=== PATIENT | female | born 1955 | race Caucasian/White ===

== ENCOUNTER 2018-11-11 01:56 | Inpatient (IN) ==
--- NOTE | 2018-11-11 02:42 | PROVIDER DOCUMENTATION ---
This chart was entered by Mindy Matthews Scribe, acting as scribe for Nunu Acuña MD. HPI-Musculoskeletal Pain/Inj - GENERAL Stated Complaint: RIGHT UPPER LEG PAIN Time Seen by Provider: 11/11/18 02:10 Source: patient - HX OF PRESENT ILLNESS-MUSKULOSKELTAL Nature of Presenting Problem: 62 y/o female presents to ED with R hip/groin pain onset 3 days ago. Pt reports she has not been able to walk or bear weight today. Pt denies injury. Pt states she has taken naproxen and meloxicam for her pain with no relief. Pt is alert and oriented. Quality of Pain: reports: aching Severity in ED: moderate Onset/Duration: 3 days ago Timing: still present, getting worse Modifying Factors: worse with: movement, palpation, other (weight bearing) Any recent injury?: No Locality of Occurance: Home Similar Symptoms Previously?: No Recently seen or treated by another doctor?: No - HIP/PELVIS PAIN/INJURY Hip Pain Location: reports: hip (R) Pain Radiation: reports: groin (R) Context / Method of Injury: reports: unknown Associated Symptoms: reports: denies symptoms Review of Systems - Adult - REVIEW OF SYSTEMS - ADULT Constitutional: denies: chills, fever Eyes: reports: no symptoms reported Ears, Nose, Mouth & Throat: reports: no symptoms reported Cardiovascular: denies: chest pain, palpitations Respiratory: denies: cough, shortness of breath Gastrointestinal: denies: abdominal pain, diarrhea, nausea, vomiting Genitourinary: reports: no symptoms reported Musculoskeletal: reports: joint pain (R hip/groin). denies: back pain Integumentary: reports: no symptoms reported Neurological: denies: dizziness/vertigo, seizure Psychiatric: reports: no symptoms reported Endocrine: reports: no symptoms reported Hematologic/Lymphatic: reports: no symptoms reported Allergic/Immunologic: reports: no symptoms reported All Other Systems: Reviewed and Negative Past History - Adult - PAST MEDICAL HISTORY-ADULT Review of Records: reports: Old Records Reviewed, Nursing Assessment Review, Medications Reviewed Major Childhood Illnesses: reports: denies history - PRIOR SURGERIES/PROCEDURES Surgical/Procedure History: reports: none - IMMUNIZATION STATUS Childhood Immunizations: See Nurse Assessment Flu Vaccine: See Nurse Assessment - FAMILY HISTORY Family History: reviewed, not pertinent - SOCIAL HISTORY Smoking: non-smoker Substance Use: none/never Alcohol Use Frequency: occasionally Living Situation: family Physical Exam-Injury Related - Physical Exam-Injury Related Initial Vital Signs Reviewed: Yes General Appearance: appears well, alert, no apparent distress Eyes: PERRL/EOMI, pink conjunctivae Head, Ears, Nose, Mouth & Throat: normocephalic/atraumatic, moist mucous membranes, normal ENT inspection Neck: non-tender, full range of motion Respiratory: chest non-tender, lungs clear, normal breath sounds Cardiovascular: normal peripheral pulses, regular rate, rhythm Abdominal Exam: normal bowel sounds, soft, tenderness (R groin) Back Exam: normal inspection, no CVA tenderness Extremity: normal range of motion, non-tender, normal gait Integumentary: normal color, warm/dry Neurologic: grossly normal Psych/Mental Status: normal mood/affect, normal thought content, normal thought process Progress - PLAN OF CARE/RESULTS Progress/Plan/Lab Results: Vital Signs - 8 hr 11/11/18 02:12 Temperature 97.6 F Pulse Rate 49 L Respiratory Rate 11 L Blood Pressure 108/73 O2 Sat by Pulse Oximetry 99 Laboratory Results - last 24 hr 11/11/18 03:19 WBC 11.56 H RBC 4.56 Hgb 15.1 Hct 44.7 MCV 98.0 MCH 33.1 H MCHC 33.8 RDW Std Deviation 13.9 Plt Count 150 MPV 12.0 H Immature Gran % (Auto) 0.3 Neut % (Auto) 70.8 Lymph % (Auto) 17.3 L [place] % (Auto) 10.3 H Eos % (Auto) 0.9 Baso % (Auto) 0.4 Immature Gran # (Auto) 0.04 Neut # (Auto) 8.18 H Lymph # (Auto) 2.00 [place] # (Auto) 1.19 H Eos # (Auto) 0.10 Baso # (Auto) 0.05 Orders Category Date Time Status CT PELVIS W/O CONTRAST [CT] Stat Exams 11/11/18 02:04 Taken CBC WITH ELECTRONIC DIFF [HEME] Stat Lab 11/11/18 03:19 Completed CMP [COMPREHENSIVE METABOLIC PANEL] [CHEM] Stat Lab 11/11/18 03:19 Received URINALYSIS W/POSS RFLX CULT [URINALYSIS] Stat Lab 11/11/18 02:07 Uncollected URINE DRUG SCREEN Stat Lab 11/11/18 02:07 Uncollected Result Diagrams: 11/11/18 03:19 - CT/MRI 1 CT Study: Pelvis Impression: Abnormal (3 lytic lesions seen), See EMR Report - CONSULTS/PCP/HOSPITALIST Notification #1 *Consult/PCP/Hospitalist*: DR FALK Time Discussed: 03:38 Consult Disposition: Will see in ED, Admit Departure - Departure Date of Disposition Decision: 11/11/18 Time of Disposition Decision: 03:39 DIAGNOSIS: Pelvic pain in female, Hip pain, Lytic bone lesions on xray Disposition: ADMITTED INPATIENT 09 Certified Medical Emergency: Emergent Condition: Good - Critical Care Note This patient required my direct & personal management of CC.: No Attestation - Physician/ URIEL Attestation Patient care was provided by Advanced Practice Provider:: No The physician spent face to face time with patient:: Yes Advanced Practice Provider documentation review:: Supervising physician onsite and consulted in the evaluation and care of this patient. The physician did have a face to face encounter with the patient. This chart was documented by the indicated scribe, (Mindy Matthews Scribe) and accurately reflects the services I performed and decisions made by me, Nunu Acuña MD, as attested by the provider's signature.
[2018-11-11 03:28] LABS: BASO# 0.05 X1000 (0.0-0.2); BASO% 0.4 % (0.0-0.8); EOS% 0.9 % (0.0-10.0); HEMATOCRIT 44.7 % (37.0-47.0); HEMOGLOBIN 15.1 g/dL (12.0-16.0); IMM GRAN# 0.04 X1000 (0.0-0.04); IMM GRAN% 0.3 % (0.0-0.5); LYMPH% 17.3 % (20.5-51.1); MCH 33.1 PG (27-31); MCHC 33.8 g/dL (33-37); MONO# 1.19 X1000 (0.11-0.59); MONO% 10.3 % (1.7-9.3); NEUT# 8.18 X1000 (1.4-6.5); NEUT% 70.8 % (42.2-75.2); PLT 150 X1000 (130-400); RBC 4.56 XMIL (4.2-5.4); RDW 13.9 % (11.5-14.5); WBC 11.56 X1000 (4.8-10.8)
[2018-11-11 03:50] LABS: AGAP 11; ALB/GLOB RATIO 0.6; ALBUMIN 2.9 g/dL (3.5-5.0); ALKALINE PHOSPHATASE 118 U/L (32-104); BUN 20 mg/dL (8-22); CALCIUM 8.8 mg/dL (8.8-10.2); CHLORIDE 103 mmol/L (98-107); COSMO 283; CREATININE 0.9 mg/dL (0.5-0.9); ESTIMATED GFR > 60; GLUCOSE 152 mg/dL (70-104); GOT 82 U/L (10-30); GPT 72 U/L (10-36); POTASSIUM 3.6 mmol/L (3.5-5.1); SODIUM 139 mmol/L (136-145); TCO2 25 mmol/L (25-35); TOTAL BILIRUBIN 0.88 mg/dL (0.20-1.00); TOTAL PROTEIN 7.6 g/dL (6.3-8.3)
[2018-11-11 04:04] LABS: URINE SOURCE CLEAN CATCH
[2018-11-11 04:24] LABS: BILIRUBIN URINE NEGATIVE (NEGATIVE); BLOOD URINE NEGATIVE (NEGATIVE); COLOR YELLOW; GLUCOSE URINE NEGATIVE (NEGATIVE); KETONE URINE TRACE mg/dL (NEGATIVE); LEUKOCYTES URINE TRACE (NEGATIVE); NITRITE URINE NEGATIVE (NEGATIVE); PROTEIN URINE 30 mg/dL (NEGATIVE); SP GRAVITY URINE 1.026; TURBIDITY URINE HAZY (CLEAR); UROBILINOGEN URINE 4 mg/dL (NORMAL)
[2018-11-11 04:26] LABS: UR EPITHELIAL CELLS >10 /HPF (<10); URINE BACTERIA 1+ /HPF; URINE RBC <10 /HPF (<10); URINE WBC <10 /HPF (<10)
[2018-11-11 04:29] LABS: UR AMPHETAMINES QUAL NONE DETECTED (NONE DETECT); UR BARBITUATES QUAL NONE DETECTED (NONE DETECT); UR BENZODIAZEPIN QUAL NONE DETECTED (NONE DETECT); UR CANNABINOIDS QUAL NONE DETECTED (NONE DETECT); UR COCAINE QUAL NONE DETECTED (NONE DETECT); UR METHADONE QUAL NONE DETECTED (NONE DETECT); UR OPIATES QUAL PRESUMPTIVE POSITIVE (NONE DETECT); UR OXYCODONE QUAL NONE DETECTED (NONE DETECT); UR PCP QUAL NONE DETECTED (NONE DETECT)
[2018-11-11] MEDS ORDERED: ZOFRAN IV PRN (05:03)
[2018-11-11] MEDS ORDERED: MOBIC PO PRN (05:03)
[2018-11-11] MEDS: NORCO-5 PO PRN ×3 (05:44→17:49)
[2018-11-11] MEDS: NS 1,000 ML IV SCH (05:45)
--- NOTE | 2018-11-11 05:51 | HISTORY AND PHYSICAL ---
PRIMARY CARE PHYSICIAN: Unknown. CHIEF COMPLAINT: Right hip pain. HISTORY OF PRESENTING ILLNESS: This is a 62-year-old female with a history of hypothyroidism and GERD, who presented to the emergency department with a four-day history of worsening right hip pain. The patient states that it worsened over the weekend and she could barely put weight on it. She was evaluated in the emergency department. She had imaging done which did show metastatic disease. Due to these findings, it was thought that she would require admission for further evaluation and management. At the time of my examination, the patient denied any headache, fever, chills, chest pain, or shortness of breath but complained of worsening right hip pain. PAST MEDICAL HISTORY: Hypothyroidism and GERD. PAST SURGICAL HISTORY: None. ALLERGIES: Penicillin. CURRENT MEDICATIONS: 1. Nexium 40 mg p.o. daily. 2. Lortab 7.5/500 one p.o. q.6 hours. 3. Levothyroxine 125 mcg p.o. daily. 4. Meloxicam 7.5 mg p.o. daily. SOCIAL HISTORY: Smoking for the past 5 years. Admits to social alcohol use. Denies any illicit drug use. FAMILY HISTORY: No history of coronary disease. REVIEW OF SYSTEMS: Fourteen point review of systems is as in HPI, other systems negative. PHYSICAL EXAMINATION: GENERAL: Cooperative and friendly female who is resting more comfortably now. VITAL SIGNS: Temperature 97.6 degrees, pulse 49, respirations 18, blood pressure 108/73. HEENT: Atraumatic, normocephalic. Extraocular movements are intact. PERRLA. NECK: Supple. CHEST: Clear to auscultation. CARDIOVASCULAR: Regular rate and rhythm. S1 and S2. ABDOMEN: Soft. Positive bowel sounds. EXTREMITIES: Right hip region tenderness. NEUROLOGIC: She is awake, alert, and oriented x3. : No bladder distention. SKIN: Warm. LABORATORY STUDIES: WBCs 11.56, hemoglobin 15.1, hematocrit 44.7, platelets 150,000, sodium 139, potassium 3.6, chloride 103, CO2 25, BUN 20, creatinine 0.9, glucose 152. IMAGING STUDIES: Pelvic CT shows lytic lesions and metastatic disease as per ER physician. ASSESSMENT: This is a 62-year-old female with a history of hypothyroidism and gastroesophageal reflux disease, who presented to the emergency department with a four-day history of worsening right hip pain. She was evaluated in the emergency department. She had imaging done which did show suspicion for metastatic disease. Subsequently she will require admission for further management. 1. Right hip region pain. 2. Suspected metastatic lesions. 3. Hypothyroidism. 4. Gastroesophageal reflux disease. PLAN: 1. We will admit patient to medical floor with telemetry. 2. Continue with supportive treatment with adequate pain control. 3. We will schedule for further imaging to evaluate abnormal pelvic CT. 4. Restart home medications. 5. Put patient on DVT prophylaxis with SCDs. 6. We will continue to follow, reassess, and make further recommendation based on patient's clinical course. cc: Mau Peraza MD
--- NOTE | 2018-11-11 06:45 | Diag Imaging Result Doc PS360 ---
CT PELVIS W/O CONTRAST - 11/11/2018 INDICATION: groin pain COMPARISON: None FINDINGS: There are several round bony lytic lesions. These are in the medial right acetabulum, left iliac wing, and superior posterior right iliac wing. No acute fractures at this time. Please note that the right medial acetabular lytic lesion nearly eroded completely through the superior pubic ramus and is at risk for pathologic fracture. IMPRESSION: Bony metastases to the pelvis. This exam was performed using automated exposure control, adjustment of mA or kV according to patient size, and/or use of iterative reconstruction technique Electronically signed by Mohan Sands 11/11/2018 6:43 AM
[2018-11-11] MEDS: TORADOL IV SCH ×2 (09:36→21:03)
[2018-11-11] MEDS: SYNTHROID PO SCH (09:36)
[2018-11-11] MEDS: PRILOSEC PO SCH (09:36)
--- NOTE | 2018-11-11 16:37 | Diag Imaging Result Doc PS360 ---
US ABDOMEN-COMPLETE - 11/11/2018 INDICATION: elevated LFT, suspected malignancy COMPARISON: CT with contrast 11/11/2018 FINDINGS: The exam was challenging due to patient's status. The small liver masses are not visible as a result. Spleen length is 13.3 cm. Pancreas is obscured. The gallbladder is collapsed and otherwise grossly normal. Common bile duct measures 4 mm. Aorta and IVC are obscured. Main portal vein is patent. IMPRESSION: Suboptimal. Electronically signed by Mohan Sands 11/11/2018 4:34 PM
--- NOTE | 2018-11-11 16:38 | Diag Imaging Result Doc PS360 ---
US PELVIC NON-OB COMPLETE - 11/11/2018 INDICATION: suspected malignancy. pelvic metastasis found TECHNIQUE: Endovaginal COMPARISON: CT from earlier today FINDINGS: The exam is extremely challenging due to the patient's condition. The uterus is grossly normal. The uterus measures 6 x 3.2 x 4.4 cm. Endometrial stripe thickness is 4.2 mm. The ovaries are obscured. No obvious mass or fluid collection. IMPRESSION: Negative exam. Electronically signed by Mohan Sands 11/11/2018 4:35 PM
--- NOTE | 2018-11-11 18:16 | Diag Imaging Result Doc PS360 ---
CT THORAX/ABDOMEN W/CONTRAST - 11/11/2018 INDICATION: newly found pelvic bony metastasis COMPARISON: None FINDINGS: CHEST: There is no adenopathy. No evidence of pulmonary embolism. Heart and great vessels are normal. There is some minimal dependent atelectasis. There is a small 4 mm indeterminate pulmonary nodule in the right middle lobe anteriorly. There is mild COPD. There are some ill-defined hypodense nodules throughout the thoracic spine and in the sternum. No fractures. Abdomen: There are several ill-defined liver masses mainly in the lateral right lobe. The largest is in the dome, measuring 4.9 x 2.3 cm. Background liver demonstrates a nodular contour compatible with cirrhosis. No biliary dilation. No vascular thrombosis visible. Spleen size is normal. The spleen measures about 13 x 3.9 cm. The gallbladder, pancreas, and adrenals are normal. There are small cysts in the kidneys. No bowel obstruction or inflammation. There are faint low density masses in the upper lumbar spine. IMPRESSION: 1. Hepatic cirrhosis. Multifocal masses in the liver. The bony metastases may represent metastatic hepatocellular cancer. Correlate clinically. 2. Mild COPD. 3. Tiny indeterminate nodule in the right middle lobe but otherwise no significant abnormality in the lungs. 4. Multifocal subtle bony masses in the spine and sternum compatible with metastases. This exam was performed using automated exposure control, adjustment of mA or kV according to patient size, and/or use of iterative reconstruction technique Electronically signed by Mohan Sands 11/11/2018 6:13 PM
[2018-11-12] MEDS: NS 1,000 ML IV SCH ×3 (03:02→08:23)
[2018-11-12] MEDS: TORADOL IV SCH ×6 (03:03→21:55)
[2018-11-12] MEDS: PRILOSEC PO SCH (06:36)
[2018-11-12] MEDS: SYNTHROID PO SCH (06:36)
[2018-11-12 07:13] LABS: HEMATOCRIT 43.8 % (37.0-47.0); HEMOGLOBIN 14.6 g/dL (12.0-16.0); MCH 33.8 PG (27-31); MCHC 33.3 g/dL (33-37); MCV 101.4 FL (81-99); MPV 12.3 FL (7.4-10.4); RBC 4.32 XMIL (4.2-5.4); RDW 14.1 % (11.5-14.5); WBC 7.02 X1000 (4.8-10.8)
[2018-11-12 07:29] LABS: AGAP 6; ALB/GLOB RATIO 0.7; ALBUMIN 2.7 g/dL (3.5-5.0); ALKALINE PHOSPHATASE 124 U/L (32-104); BUN 17 mg/dL (8-22); CALCIUM 7.9 mg/dL (8.8-10.2); CHLORIDE 108 mmol/L (98-107); COSMO 278; CREATININE 0.6 mg/dL (0.5-0.9); ESTIMATED GFR > 60; GLUCOSE 82 mg/dL (70-104); GOT 72 U/L (10-30); GPT 66 U/L (10-36); POTASSIUM 3.9 mmol/L (3.5-5.1); SODIUM 139 mmol/L (136-145); TCO2 25 mmol/L (25-35); TOTAL BILIRUBIN 0.68 mg/dL (0.20-1.00); TOTAL PROTEIN 6.7 g/dL (6.3-8.3)
[2018-11-12] MEDS: NORCO-5 PO PRN ×3 (08:24→21:56)
[2018-11-12 13:14] LABS: INR 1.12; PROTIME 15.3 Seconds (11.0-16.0)
[2018-11-12 13:15] LABS: PTT 33.4 Seconds (22.3-41.8)
--- NOTE | 2018-11-12 14:23 | PROGRESS NOTE ---
DATE: 11/12/2018 SUBJECTIVE: Patient reports pain is under control. Denies any other complaint at this time. OBJECTIVE: Vital Signs: Temperature 98.3 degrees, heart rate 47, respiratory rate 16, blood pressure 144/74. O2 saturation 97% on room air. General: This is a chronically ill-looking, 62-year-old female lying in bed in no acute distress. Cardiovascular: S1, S2 heard. No murmurs, gallops, or rubs. Regular rate and rhythm. Respiratory: Clear bilaterally to auscultation. No work of breathing or using accessory muscles. Abdomen: Soft, nontender to palpation. Bowel sounds present. No organomegaly. Extremities: Right hip region tenderness. Patient moves all four extremities. Peripheral pulses present in both legs. Neurological: Patient is alert and oriented x3. Moves all 4 extremities. LABORATORY DATA: Reviewed. ASSESSMENT AND PLAN: 1. Suspected hepatocellular carcinoma. The patient was basically admitted to the hospital for right hip pain. CT scan of the pelvis shows possible metastatic lesions. The initial workup I ordered showed the CT of the abdomen and thorax hepatic cirrhosis with bony metastases in the spine on sternum suggesting metastatic hepatocellular cancer. Sister who is in the bedside today provide much information that the patient did not. She said that she was diagnosed more than 10 years ago with hepatitis C, and she was seen a few years back the by GI in the [facility] where they were trying to provide medications for this chronic hepatitis C. Apparently, she was lost to follow up. She was recently seen a few months back in [facility] for abdominal pain. We found this advanced cirrhosis but as per sister there was no metastasis noted at this time. I have put a consult for Hematology/Oncology. I have seen an order for a CT-guided liver biopsy to be done later today. Also, I have ordered alpha- fetoprotein. We are going to check hepatitis C viral load and fibrosure. We will see what those exams shows. In the meantime, we will follow recommendations from Dr. Gutiérrez from Oncology. At this point, pain is under control. We will continue with the same management. 2. Hypothyroidism stable. We will continue home medications. 3. Gastroesophageal reflux disease. We will continue with omeprazole. DISPOSITION: We are following the lead from hematology/oncology. cc: MD GERALDINE Barillas
--- NOTE | 2018-11-12 15:27 | Diag Imaging Result Doc PS360 ---
EXAM: CT GUIDED BX LIVER 11/12/2018 HISTORY: met disease; liver lesions TECHNIQUE: CT-guided biopsy of the liver COMMENT: The risks and benefits of the procedure were discussed with the patient and she agreed to the procedure. Following sterile preparation the skin and administration 1% lidocaine to the skin and deeper soft tissues superficial to a enhancing mass previously demonstrated in the inferior right hepatic lobe, and following administration of intravenous contrast to better visualize the lesion, the area of the lesion was biopsied 4 times with a coaxial 18-gauge Temno core biopsy needle. There are no immediate complications. IMPRESSION: CT-guided biopsy of the liver as described. Electronically signed by Cam Noel 11/12/2018 3:25 PM
[2018-11-13] MEDS: TORADOL IV SCH ×4 (03:07→22:08)
[2018-11-13] MEDS: PRILOSEC PO SCH ×2 (05:50→06:10)
[2018-11-13] MEDS: SYNTHROID PO SCH ×2 (05:50→06:10)
[2018-11-13 06:31] LABS: HEMATOCRIT 42.7 % (37.0-47.0); HEMOGLOBIN 14.2 g/dL (12.0-16.0); MCH 33.6 PG (27-31); MCHC 33.3 g/dL (33-37); MCV 100.9 FL (81-99); MPV 12.1 FL (7.4-10.4); RBC 4.23 XMIL (4.2-5.4); WBC 7.02 X1000 (4.8-10.8)
[2018-11-13 06:46] LABS: AGAP 8; ALB/GLOB RATIO 0.6; ALBUMIN 2.7 g/dL (3.5-5.0); ALKALINE PHOSPHATASE 127 U/L (32-104); BUN 17 mg/dL (8-22); CALCIUM 8.6 mg/dL (8.8-10.2); CHLORIDE 108 mmol/L (98-107); COSMO 280; CREATININE 0.6 mg/dL (0.5-0.9); ESTIMATED GFR > 60; GLUCOSE 82 mg/dL (70-104); GOT 70 U/L (10-30); GPT 61 U/L (10-36); SODIUM 140 mmol/L (136-145); TCO2 24 mmol/L (25-35); TOTAL BILIRUBIN 0.78 mg/dL (0.20-1.00); TOTAL PROTEIN 7.1 g/dL (6.3-8.3)
[2018-11-13] MEDS: NORCO-5 PO PRN ×4 (06:54→20:23)
[2018-11-13 15:17] LABS: HEPATITIS PROFILE ACUTE SEE COMMENTS
--- NOTE | 2018-11-13 19:51 | HEMO/ONC CONSULTATION ---
DATE: 11/12/2018 CONSULTATION REQUESTED BY: The Hospitalist Service. REASON FOR CONSULTATION: Consultation is for metastatic hip lesion. HISTORY OF PRESENT ILLNESS: Ms. Bourgeois is a 62-year-old female who presented to the ER initially complaining of worsening right hip pain to the point where she cannot ambulate. The patient has a history of cirrhosis. Imaging was done and they found that she had a metastatic right hip lesion and she has now been admitted for further evaluation and treatment. PAST MEDICAL HISTORY: Positive for hypothyroidism and GERD, as well as Hep C cirrhosis. PAST SURGICAL HISTORY: None. SOCIAL HISTORY: Patient admits to social alcohol use, but denies any illicit drug use. She is a current smoker. FAMILY HISTORY: Negative for any coronary artery disease. Also negative for any cancer. REVIEW OF SYSTEMS: Twelve point review of systems completed is negative, except for expressed in HPI. PHYSICAL EXAMINATION: Vital Signs: Temperature 98.3, heart rate 47, respirations 16, blood pressure 144/74. O2 saturation 97% on room air. General: This is a female sitting on her hospital bed. Her sister is at bedside. HEENT: Head normocephalic, atraumatic. Eyes: Pupils equal, round, reactive. Ears, nose, throat, neck and mouth: Oral mucosa appears to be normal. Gross auditory acuity is intact. Cardiovascular: S1 and S2 heard with no murmurs, gallops or rubs appreciated. Respiratory: Chest is essentially clear. Normal respiratory effort. Gastrointestinal: Abdomen is soft. No tenderness noted at this time. Normoactive bowel sounds. Musculoskeletal: No bony abnormalities. Neurologic: Patient is alert and awake. LABORATORY AND STUDIES: White blood cells 7.02, hemoglobin 14.6, platelet count 130,000. Sodium 139, potassium 3.9 chloride 108, CO2 25 BUN 17, creatinine 0.6, glucose 82. CT of chest and abdomen shows hepatic cirrhosis with multifocal masses in the liver. Bony metastasis may represent metastatic hepatocellular cancer. Correlate clinically. Mild COPD. Tiny indeterminate nodule in the right middle lobe that measures 4 mm with no other significant abnormality in the lungs. Multifocal subtle bony masses in the spine and sternum compatible with metastasis. ASSESSMENT AND PLAN: 1. Bony disease with some liver masses. Unclear of the primary source for cancer at this time. We recommend that we proceed with a liver biopsy and hopefully they will be able to identify the primary. AFP has already been ordered and we will follow up on those results. Await final path before discussing any treatment so that way we can ensure we know what the primary is. 2. Hip pain. Continue management per the primary team. Hip pain seems to be well managed currently with [place]. 3. Hypothyroidism. She will continue on Synthroid at this time. 4. Acid reflux symptoms. The patient can continue to take Prilosec. We want to thank you for consulting us on Ms. Bourgeois and we will continue to follow along and adjust our treatment plan per hospital course. Dictated by ELIZABETH Loera for Eliza Gutiérrez MD cc: Eliza Gutiérrez MD I have seen and examined the patient. The above note reflects my history, physical, assessment and plan. Eliza CHANDLER
--- NOTE | 2018-11-13 21:19 | PROGRESS NOTE ---
DATE: 11/13/2018 INTERVAL HISTORY: She underwent CT-guided liver biopsy yesterday which she tolerated well. She did have elevated alpha-fetoprotein level which came about. SUBJECTIVE: Ms. Bourgeois denies any new complaints. She is feeling fine. We discussed about repeating blood test tomorrow. We also discussed about getting physical therapy and help her come out of bed. I answered all of her questions. SUBJECTIVE: She is denying any chest pain or shortness of breath. VITALS: Currently, vitals evaluation suggests she has been afebrile with a pulse of 51, respiratory rate 14, temperature 98.5, blood pressure 132/75. Saturating 97% on room air. PHYSICAL EXAMINATION: General: Does not appear in any acute distress. HEENT: Oral cavity is moist. Lungs: Air entry bilaterally equal. No wheeze, rhonchi, crackles. Cardiovascular: S1, S2 normal. No murmur, rub or gallop. Abdomen: Soft. She has mild tenderness on the right upper quadrant. She also has the liver biopsy site is dressed, not bleeding. Hypoactive bowel sounds. She does not have any lower extremity edema. LABS: Suggestive of stable hemoglobin, mild thrombocytopenia, normal kidney function, persistently elevated transaminitis, elevated alpha-fetoprotein level. Hepatitis panel suggests positive hepatitis C antibody suggestive of chronic hepatitis. Her quantitative and FibroSURE scores are pending. ASSESSMENT AND PLAN: 1. Suspected hepatocellular carcinoma with bony metastasis involving pelvis and sternum. Follow up final liver biopsy results. She has a hepatitis C antibody positive. The FibroSURE sure and quantitative Vital RNA are in lab. Hematology/Oncology has been consulted. CT scan liver biopsy result is pending. 2. Others, continue home levothyroxine for hypothyroidism, omeprazole for chronic GERD, and [place] as needed for pain. 3. Disposition: If patient continues to do better, my plan is to discharge her home with family. I will consider discussion with Hematology/Oncology before I make that order. Plan of care discussed with the patient. Tomorrow I am going to discuss plan of care with the patient's family as well. cc: Papa Aguirre MD MTDD
[2018-11-14] MEDS: NORCO-5 PO PRN ×5 (05:12→22:29)
[2018-11-14] MEDS: TORADOL IV SCH ×2 (05:13→05:36)
[2018-11-14] MEDS: PRILOSEC PO SCH ×3 (05:36→09:31)
[2018-11-14] MEDS: SYNTHROID PO SCH ×2 (05:36→09:31)
[2018-11-14 06:32] LABS: HEMATOCRIT 44.3 % (37.0-47.0); HEMOGLOBIN 14.8 g/dL (12.0-16.0); MCH 33.4 PG (27-31); MCHC 33.4 g/dL (33-37); MPV 12.2 FL (7.4-10.4); RBC 4.43 XMIL (4.2-5.4); RDW 13.8 % (11.5-14.5); WBC 6.47 X1000 (4.8-10.8)
[2018-11-14 06:55] LABS: AGAP 9; ALB/GLOB RATIO 0.6; ALBUMIN 2.7 g/dL (3.5-5.0); ALKALINE PHOSPHATASE 118 U/L (32-104); BUN 16 mg/dL (8-22); CALCIUM 8.3 mg/dL (8.8-10.2); CHLORIDE 104 mmol/L (98-107); COSMO 278; CREATININE 0.6 mg/dL (0.5-0.9); ESTIMATED GFR > 60; GLUCOSE 127 mg/dL (70-104); GOT 73 U/L (10-30); GPT 59 U/L (10-36); POTASSIUM 3.7 mmol/L (3.5-5.1); SODIUM 138 mmol/L (136-145); TCO2 25 mmol/L (25-35); TOTAL BILIRUBIN 0.88 mg/dL (0.20-1.00); TOTAL PROTEIN 7.1 g/dL (6.3-8.3)
--- NOTE | 2018-11-14 10:41 | EKG Report ---
Test Performed on : 11/14/2018 10:31:40 AM Test Reason : Evaluate for bradycardia Blood Pressure : / mmHG Vent. Rate : 069 BPM Atrial Rate : 069 BPM P-R Int : 128 ms QRS Dur : 078 ms QT Int : 424 ms P-R-T Axes : 038 071 015 degrees QTc Int : 454 ms Normal sinus rhythm. Inferior infarct , age undetermined Abnormal ECG When compared with ECG of 16-MAR-2012 13:18, ST no longer elevated in Anterior leads T wave inversion now evident in Inferior leads T wave amplitude has decreased in Anterolateral leads Confirmed by Gianluca VELAZQUEZ, Renny Bey ([id number]) on 11/17/2018 11:29:37 AM
[2018-11-14] MEDS ORDERED: FLEET ENEMA PR ONE (11:53)
[2018-11-14] MEDS: MIRALAX PO SCH (13:12)
--- NOTE | 2018-11-14 14:54 | PROGRESS NOTE ---
DATE: 11/14/2018 INTERVAL HISTORY: No acute event overnight. The patient has not had a bowel movement, and she would like to get a bowel regimen. The patient's sister is at bedside who is a surrogate decision, who is a family member involved in her care. We discussed about taking the Dixon catheter out. We also discussed about bone mets and liver lesions. SUBJECTIVE: Patient denies any complaints. She states she wants to go home. Currently, vitals suggest temperature 97.9 degrees, pulse 49, respiratory rate 14, blood pressure 126/83 and saturating 97% on room air. PHYSICAL EXAMINATION: General: The patient does not appear in any acute distress oral cavity is moist. Lungs: Air entry bilaterally equal. No wheeze, rhonchi, or crackles. Cardiovascular: S1, S2 normal. No murmur, rub, or gallop. Abdomen: Soft, nontender. No lower extremity edema. Her Dixon catheter has ordered to be removed. LABORATORY: Labs are suggestive of stable hemoglobin, hematocrit, her platelet count is stable at 120,000. She has normal electrolytes. Hyperchloremia has resolved. Normal kidney function. Mild transaminitis. Liver biopsy reports are still pending. Hepatitis C quantitative and hepatitis C FibroSURE are pending. ASSESSMENT AND PLAN: 1. Suspected metastatic neoplasia of unknown primary at the moment involving liver, pelvis, and sternum. Follow up final liver biopsy results. She does have history of chronic hepatitis C. Her FibroSURE and quantitative viral RNA are in lab. Hematology/Oncology has been on board, and they would plan outpatient management based on her final biopsy results. It is possible she may need a repeat liver biopsy outpatient considering patient had moved during the biopsy procedure, and adequate liver sample may not have been obtained. 2. Others: Continue levothyroxine for hypothyroidism, omeprazole for chronic GERD, [place] as needed for pain. I will start her on MiraLAX for constipation. Her EKG does have sinus bradycardia. I would advise her to get an outpatient echocardiogram after discussing with candle molder machine as appropriate. 3. Disposition: I discussed her care with the patient's sister. The patient would like to go home. The patient's sister is working on setting up help to get her home family support. Depending on that, I am anticipating discharging in the next 24 hours with home physical therapy. Plan of care discussed with the patient and her sister at bedside. All of the questions have been answered. cc: Papa Aguirre MD
[2018-11-15] MEDS: NORCO-5 PO PRN ×5 (04:50→23:15)
[2018-11-15] MEDS: PRILOSEC PO SCH ×2 (04:52→06:48)
[2018-11-15] MEDS: SYNTHROID PO SCH ×2 (04:53→06:48)
[2018-11-15] MEDS: MIRALAX PO SCH ×3 (09:37→20:47)
[2018-11-15] MEDS: LACTULOSE PO SCH ×2 (12:18→23:01)
--- NOTE | 2018-11-15 16:12 | PROGRESS NOTE ---
DATE: 11/15/2018 INTERVAL HISTORY: No acute event overnight. Hepatitis C viral load came back elevated to more than 55,000. The patient has not had a bowel movement. SUBJECTIVE: Denies any complaints. We discussed about giving stool softener. She had refused her [place] enema yesterday. We discussed about potentially discharging her once her family is around, and she has a bowel movement. VITALS: Temperature 98.2 degrees, pulse 48, respiratory rate 20, blood pressure 120/78 and saturating 96% on room air. PHYSICAL EXAMINATION: Morbidly obese not in acute distress. Oral cavity is moist. Air entry bilaterally equal. No wheeze or crackles. S1, S2 normal. No murmur or gallop. Abdomen is soft and nontender. No lower extremity edema. LABORATORY: No new labs today except as mentioned above. ASSESSMENT AND PLAN: 1. 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 2. Others: Hypothyroidism and constipation. PLAN: Start patient on additional stool softeners. Once the patient has a bowel movement, plan is to discharge her home with outpatient GI, orthopedic and oncology follow-up. I will increase her levothyroxine dose because of very high TSH levels. cc: Papa Aguirre MD MTDD
[2018-11-15] MEDS: DULCOLAX PR SCH ×2 (18:01→22:51)
--- NOTE | 2018-11-15 23:08 | DISCHARGE SUMMARY ---
ADMISSION DATE: 11/11/2018 DISCHARGE DATE: 11/15/2018 DISCHARGE DISPOSITION: Home with home physical therapy with family support. DISCHARGE CONDITION: Stable. The patient is alert and oriented x3. She is able to come out of bed with minimal help. She is able to go to the nursing station and come back. Hemodynamically stable. DISCHARGE DIAGNOSES: 1. Right-sided hip region pain, likely due to lytic bone lesions. 2. 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 3. Chronic active hepatitis C with advanced cirrhosis. 4. Hypothyroidism with elevated TSH, without myxedema coma. 5. Constipation. 6. History of chronic gastroesophageal reflux disease. DISCHARGE MEDICATIONS: Naproxen 500 mg every 12 hours as needed for pain. Esomeprazole 40 mg daily, bisacodyl 10 mg per rectal b.i.d. 15 suppositories have been prescribed. MiraLAX 17 g b.i.d., 20 powders have been prescribed. [place] 5 one tablet q.4 hours as needed for pain, 20 tablets have been prescribed. Phenergan 25 mg every 4 to 6 hours as needed for nausea and vomiting. Levothyroxine 150 mcg daily, 30 tablets have been prescribed. This is an increase in the dose from her routine dose of 125 because of elevated TSH. CONSULTATION DURING HOSPITALIZATION: Oncology, Dr. Eliza Gutiérrez. PHYSICAL EXAMINATION: Vital signs: At the time of discharge, temperature 98.2 degrees, pulse 48, respiratory rate 20, blood pressure 120/78, saturating 96% on room air. General: The patient does not appear in acute distress. Lungs: Air entry bilaterally equal. No wheeze, rhonchi, or crackles. Cardiovascular: S1, S2 normal. No murmur or gallop. Abdomen: Soft, nontender, obese. Extremities: No lower extremity edema. Neck: She does not have any thyromegaly. Neurologic: She is alert and oriented x3. LABORATORIES: At the time of discharge, WBC is 6.4, hemoglobin 14.8, platelet count 120,000. Electrolytes suggestive of normal sodium, potassium, chloride, BUN of 16, creatinine of 0.6. She does have AST of 73, ALT of 59, and alkaline phosphatase of 118. Her TSH is 13.83. Tumor marker alpha-fetoprotein was elevated with a 15.9. Her hepatitis panel was positive for hepatitis C antibody. Her hepatitis C RNA had 55,000 copies. Her hepatitis C virus liver fibrosis test had a score of 0.86 with severe fibrosis and advanced cirrhosis. HOSPITAL COURSE SUMMARY: Ms. Bourgeois is a 62-year-old lady with past medical history of hypothyroidism, who presented to the emergency room with history of worsening right-sided hip pain. She was not able to bear any weight on it. She was evaluated in the emergency department, and imaging had shown metastatic disease and lytic bone lesions. She was admitted for further management. Considering her chronic active hepatitis C and liver lesions, hepatocellular carcinoma was one of the differentials. The patient underwent liver biopsy on 11/12/2018. However, at the time of biopsy, the patient had moved, so there was concern that a proper sampling was not taken. The liver biopsy result came back as nodular fibrosis consistent with cirrhosis stage IV. Steatosis, macrovesicular, involving 10% to 15% of hepatocytes was present. While inside the hospital, her alpha-fetoprotein level was also elevated, and her alkaline phosphatase was also elevated, consistent with lytic bone lesions. She was given treatment for her constipation, and then she had a bowel movement. Her levothyroxine dose was increased. At the time of discharge, the patient was able to walk, though with a little bit of help. Discussion was carried out with the patient's family and oncologist about disposition and further management. Oncologist has conveyed that she would prefer to get another liver biopsy to diagnose before approaching her with any treatment, and this could be set up as an outpatient. Considering that going to rehab could delay the diagnostic of her cancer and the patient had good family support, it was decided to discharge the patient home with family support and set up home physical therapy. She was given prescription of stool softeners and pain medication. Her levothyroxine dose was increased. She was provided detailed instructions about following up with oncologist and discuss about repeat biopsy. She was also advised about following up with central office frame wirer. We discussed about treatment for hepatitis C. Plan of care was discussed with the patient and her family at bedside. All of their questions have been answered. TIME SPENT: More than 30 minutes was spent in discharging this patient. cc: Papa Aguirre MD
--- NOTE | 2018-11-15 23:14 | DISCHARGE SUMMARY ---
ADMISSION DATE: 11/11/2018 DISCHARGE DATE: ADDENDUM: 1. Significant microbiological data: Urine culture did not have any growth. 2. Significant imaging: Pelvis CT on 11/11 had suggested bony metastasis and lytic lesions involving medial right acetabulum, left iliac wing and superoposterior right iliac wing, without any fractures; high risk for pathologic fractures. 3. Chest and abdomen CT on 11/11 had suggested hepatic cirrhosis; multifocal masses in the liver; low-density masses in the upper lumbar spine suspicious for metastatic hepatocellular cancer; tiny intermediate nodule in the right middle lobe of the lung; multifocal subtle bony masses in the spine and sternum. 4. Abdominal ultrasound on 11/11 was challenging considering the patient's body habitus. 5. Pelvis ultrasound on 11/11 had suggested no obvious mass or fluid collection. cc: Papa Aguirre MD
[2018-11-16] MEDS: SYNTHROID PO SCH (06:26)
[2018-11-16] MEDS: PRILOSEC PO SCH (06:26)
[2018-11-16] MEDS: NORCO-5 PO PRN ×4 (06:30→23:57)
[2018-11-16] MEDS: MIRALAX PO SCH ×2 (09:25→21:37)
[2018-11-16] MEDS: DULCOLAX PR SCH ×3 (09:25→21:37)
[2018-11-16] MEDS: LACTULOSE PO SCH ×2 (09:25→21:37)
--- NOTE | 2018-11-16 17:06 | PROGRESS NOTE ---
DATE: 11/16/2018 INTERVAL HISTORY: No acute events overnight. Yesterday patient did not leave because patient's sister conveyed to us that she was not able to make arrangements for patient to come home and she would like to keep the patient inside the hospital at least for until Saturday. The patient had not had a bowel movement however she had refused her lactulose once and she has not taken her bisacodyl suppositories. She denies any new complaints. I again discussed with her about the importance of taking her medications regularly and she is willing to take her suppository today. Denies any new complaints except hip pain. VITALS: Temperature 99.2 degrees, pulse 51, respiratory 16, blood pressure 120/70, saturating 97% room air. PHYSICAL EXAMINATION: Does not appear in any acute distress. Oral cavity is moist. Air entry bilaterally equal. No wheeze, rhonchi, crackles. S1, S2 normal. No murmur or gallop. Abdomen is distended, soft, nontender. No lower extremity edema. Active bowel sound. LABS: Suggested no CBC or BMP today. Her TSH was elevated yesterday. ASSESSMENT AND PLAN: 1. Metastatic neoplasia of undiagnosed primary involving the liver, bilateral pelvis, sternum, lumbar spine with liver cirrhosis and chronic active hepatitis C suspicious of metastatic hepatocellular carcinoma. Though the liver biopsy only detected cirrhosis and no malignancy, apparently patient had moved at the time of biopsy and they are concerned that proper biopsy tissue could not be obtained. Oncology on board and the plan is to get repeat liver biopsy as an outpatient as patient does not want to get the repeat biopsy now. Outpatient Hematology Oncology appointment will be set up. 2. Chronic active hepatitis C with advanced cirrhosis based on hepatitis C virus RNA count as well as FibroSURE score. Patient will be given outpatient GI referral and discussed about treatment. 3. Constipation likely in the setting of her uncontrolled hypothyroidism. Continue patient on MiraLAX, lactulose and I counseled patient about taking her medications including bisacodyl suppositories. She is agreeable. 4. Others. Continue higher dose of levothyroxine for hypothyroidism, omeprazole for chronic GERD, [place] for pain. 5. Disposition. I am awaiting home arrangement for her to go home with her family support so that she can follow up with oncology soon and her cancer workup could be progressed as opposed to sending her to rehab and is what patient and her sister want as well. Plan of care discussed with the patient. All of her questions have been answered. cc: Papa Aguirre MD
[2018-11-17] MEDS: NORCO-5 PO PRN ×5 (04:24→22:48)
[2018-11-17] MEDS: PRILOSEC PO SCH (06:13)
[2018-11-17] MEDS: SYNTHROID PO SCH (06:13)
[2018-11-17] MEDS: LACTULOSE PO SCH ×3 (08:40→22:48)
[2018-11-17] MEDS: MIRALAX PO SCH ×2 (08:40→22:50)
[2018-11-17] MEDS: DULCOLAX PR SCH ×2 (08:40→22:50)
[2018-11-17] MEDS: PERICOLACE PO SCH ×2 (08:46→22:49)
--- NOTE | 2018-11-17 12:40 | PROGRESS NOTE ---
DATE: 11/17/2018 INTERVAL HISTORY: No acute events. Patient did have a bowel movement. The patient's sister is at bedside. I discussed with her about chronic active hepatitis C liver cirrhosis. The liver biopsy results that it was not able to get the sample from the actual nodule, and my discussion with Dr. Gutiérrez that I had. Currently, patient and her sister wants to remain inside the hospital to attempt repeat a liver biopsy. I told them that I will discuss this with the cancer doctor. VITALS: Temperature 97.5 degrees, pulse 48, respiratory rate 18, blood pressure 106/66, and saturating 99% on room air. PHYSICAL EXAMINATION: General: Obese. Not in any acute distress. HEENT: Oral cavity is moist. Lungs: Air entry bilaterally equal. No wheeze, rhonchi or crackles. Heart: S1, S2 normal. No murmur or gallop. Abdomen: Distended, soft, and nontender. Active bowel sounds. Extremities: No lower extremity edema. LABORATORY: She does not have any CBC or BMP today. ASSESSMENT AND PLAN: 1. Metastatic neoplasia of undiagnosed primary involving liver, bilateral pelvis, sternum, lumbar spine with chronic active hepatitis C, and liver cirrhosis. The initial liver biopsy just detected liver cirrhosis. However, patient had more at the time of biopsy. I will discuss with Oncology about repeating a liver biopsy since the patient is now agreeable. Previously, she did not want to get the liver biopsy, and the plan was to have her follow up with oncology outpatient. 2. Chronic active hepatitis C with advanced cirrhosis and elevated viral load. The patient's sister would like the patient to follow up with day care supervisor in [place] that she had seen previously. However, she did not receive any treatment at that time. 3. Constipation in the setting of uncontrolled hypothyroidism, now resolved. Continue current dose of MiraLAX, lactulose and bisacodyl suppositories. 4. Continue higher dose of levothyroxine for hypothyroidism and omeprazole for chronic GERD with [place] for pain. DISPOSITION: I am awaiting discussion with Oncology, and based on that, my plan is to discharge her home with outpatient oncology follow-up or getting repeat liver biopsy inpatient. The patient had previously refused to go to rehab. Plan of care discussed with the patient's sister. All of her questions have been answered. ADDENDUM: I discussed her condition with oncologist today. The oncologist would evaluate her and plan a repeat liver biopsy inpatient as appropriate. My discharge plan would depend on that. cc: Papa Aguirre MD MTDD
[2018-11-18] MEDS: NORCO-5 PO PRN ×4 (02:38→20:11)
[2018-11-18] MEDS: PRILOSEC PO SCH (06:53)
[2018-11-18] MEDS: SYNTHROID PO SCH (06:54)
[2018-11-18] MEDS: DULCOLAX PR SCH ×2 (08:56→20:12)
[2018-11-18] MEDS: PERICOLACE PO SCH ×2 (08:56→20:13)
[2018-11-18] MEDS: MIRALAX PO SCH ×2 (08:57→20:13)
[2018-11-18] MEDS: LACTULOSE PO SCH ×2 (08:57→20:11)
--- NOTE | 2018-11-18 12:31 | PROGRESS NOTE ---
DATE: 11/18/2018 INTERVAL HISTORY: Oncology team ordered CT scan, liver biopsy just in the morning time. However, it looks like the patient has already had her breakfast. Discussion is going on with the radiology team if the patient will be able to get her biopsy today or tomorrow. I advised patient not to eat until that is clear. VITAL SIGNS: Temperature 97.6 degrees, pulse 46, respiratory rate 12, blood pressure 137/68, saturating 98% on room air. PHYSICAL EXAMINATION: General: She does not have any new complaints. Does not appear in acute distress. HEENT: Oral cavity is moist. Lungs: Air entry bilaterally equal. No wheeze, rhonchi, crackles. Cardiovascular: S1, S2 normal. No murmur, rub, or gallop. Abdomen: Obese, not tender. Active bowel sounds. Extremities: No lower extremity edema. LABORATORY DATA: No new labs today. The patient did have multiple bowel movements yesterday. ASSESSMENT AND PLAN: 1. Metastatic neoplasm of undiagnosed primary involving liver, bilateral pelvic bones, sternum, lumbar spine with chronic active hepatitis C and liver cirrhosis. The initial biopsy just detected liver cirrhosis. However, patient had changed her position right at the time of biopsy and so most probably the biopsy could not target the actual nodule on the liver. Oncology on board and is planning a repeat CT-guided liver biopsy. 2. Chronic active hepatitis C with advanced cirrhosis and elevated viral load. The patient's sister would like the patient to follow up with batch unit treater in [place] that she had seen previously. However, she did not receive any treatment at that time. 3. Constipation in the setting of uncontrolled hypothyroidism, now resolved. Continue current dose of MiraLAX, lactulose, bisacodyl suppositories and higher dose of levothyroxine for hypothyroidism. I will also continue omeprazole for chronic gastroesophageal reflux disease and [place] for pain. 4. Disposition. I am awaiting lead from Oncology about repeat CT-guided liver biopsy. Plan of care discussed with the patient. All of her questions have been answered. Yesterday I had discussion with the patient's sister at bedside and had kept her informed. cc: Papa Aguirre MD
[2018-11-19] MEDS: PRILOSEC PO SCH (06:11)
[2018-11-19] MEDS: SYNTHROID PO SCH (06:11)
[2018-11-19 06:17] LABS: BASO# 0.04 X1000 (0.0-0.2); BASO% 0.5 % (0.0-0.8); EOS# 0.39 X1000 (0.0-0.7); HEMATOCRIT 42.5 % (37.0-47.0); HEMOGLOBIN 14.3 g/dL (12.0-16.0); IMM GRAN# 0.02 X1000 (0.0-0.04); IMM GRAN% 0.3 % (0.0-0.5); LYMPH# 2.09 X1000 (1.2-3.4); LYMPH% 26.7 % (20.5-51.1); MCHC 33.6 g/dL (33-37); MCV 98.2 FL (81-99); MONO# 0.94 X1000 (0.11-0.59); MPV 12.3 FL (7.4-10.4); NEUT# 4.35 X1000 (1.4-6.5); NEUT% 55.5 % (42.2-75.2); PLT 134 X1000 (130-400); RBC 4.33 XMIL (4.2-5.4); RDW 13.9 % (11.5-14.5); WBC 7.83 X1000 (4.8-10.8)
[2018-11-19 07:00] LABS: AGAP 9; BUN 14 mg/dL (8-22); CALCIUM 8.4 mg/dL (8.8-10.2); CHLORIDE 107 mmol/L (98-107); COSMO 281; CREATININE 0.7 mg/dL (0.5-0.9); ESTIMATED GFR > 60; GLUCOSE 88 mg/dL (70-104); POTASSIUM 3.8 mmol/L (3.5-5.1); SODIUM 141 mmol/L (136-145); TCO2 25 mmol/L (25-35)
--- NOTE | 2018-11-19 09:11 | Diag Imaging Result Doc PS360 ---
EXAM: US LIVER BIOPSY W S/I 11/19/2018 HISTORY: METS TECHNIQUE: Ultrasound-guided biopsy of the right hepatic lobe COMMENT: The risks and benefits of the procedure including the possibility of bleeding, infection, reaction to lidocaine, or nondiagnostic biopsy were discussed with the patient and she agreed to the procedure. The lesion in the lower right lobe is identified on ultrasonography and following sterile preparation the skin and administration of 1% lidocaine to the skin and deeper soft tissues, biopsied 6 times with a Temno coaxial 18-gauge core biopsy needle. There are no immediate complications. The specimen appears to be adequate grossly. IMPRESSION: Successful ultrasound-guided liver biopsy. Electronically signed by Cam Noel 11/19/2018 9:09 AM
--- NOTE | 2018-11-19 09:12 | Diag Imaging Result Doc PS360 ---
EXAM: US GB < RUQ (LIMITED) 11/19/2018 HISTORY: POSS. BIOPSY TECHNIQUE: Limited ultrasonography of the liver was performed as a addendum to the previous study of 11/11/2018. COMMENT: The liver is hyperechoic. There are multiple hypoechoic cysts slightly poorly marginated masses at least two in the inferior right lobe and one larger and one smaller in the anterior upper right lobe and left lobe under the diaphragm. These are also identifiable on CT with contrast. IMPRESSION: Multiple hypoechoic masses, the largest in the upper anterior right lobe measuring 3.7 cm in greatest dimension. Electronically signed by Cam Noel 11/19/2018 9:10 AM
[2018-11-19] MEDS: NORCO-5 PO PRN ×2 (09:34→15:18)
[2018-11-19] MEDS: DULCOLAX PR SCH (09:35)
[2018-11-19] MEDS: MIRALAX PO SCH (09:35)
[2018-11-19] MEDS: LACTULOSE PO SCH (09:35)
[2018-11-19] MEDS: PERICOLACE PO SCH (09:36)
[2018-11-19 14:33] VITALS: BP 142/60
--- NOTE | 2018-11-20 10:44 | DISCHARGE SUMMARY ---
ADMISSION DATE: 11/11/2018 DISCHARGE DATE: 11/19/2018 ADDENDUM: DISCHARGE DISPOSITION: Home with family. VITALS: At the time of discharge, temperature 97.8 degrees, pulse 60, respiratory rate 16, blood pressure 140/60, saturating 98% on room air. PHYSICAL EXAMINATION: General: Not in any acute distress. HEENT: Oral cavity is moist. Lungs: Air entry bilaterally equal. No wheeze, rhonchi, or crackles. Abdomen: Soft. She has tenderness in the right upper quadrant where she just got her biopsy. Extremities: No lower extremity edema. LABS: On the day of discharge, her hemoglobin is 14.3, platelets of 134,000. Electrolytes are normal, with calcium of 8.4. UPDATED DISCHARGE MEDICATIONS: Naproxen 500 mg every 12 hours as needed for pain. Esomeprazole 40 mg daily. Bisacodyl 10 mg per rectal b.i.d., 15 suppositories. Lidocaine 5% patch, 1 topical daily, 10 patches. MiraLAX 17 g b.i.d. 20 powder. [place] 5 one tablet every 6 hours as needed, 45 tablets. Phenergan 25 mg p.o. q.6 hours as needed, 15 tablets. Levothyroxine 150 mcg daily, 30 tablets. UPDATED HOSPITAL COURSE SUMMARY: The first liver biopsy had only detected liver cirrhosis, however, apparently the patient had moved at the time of that biopsy and an appropriate sample could not be collected. Later on the patient's family had decided to stay back in the hospital while we get the repeat liver biopsy, which was performed on 11/19/2018, and according to the radiologist's report, probably adequate sampling was collected. The patient is advised to follow up with as an outpatient and we will try to help her schedule an appointment. Previously the patient had refused to go to rehab, and patient's sister has made arrangements for her to go home. Plan of care has been discussed with the patient and with her sister on the phone. All of their questions have been answered. cc: MD GERALDINE Wilkinson
== END 2018-11-19 17:24 | disposition home health service (06) | DRG 543 ==
LOC: SUATTDRO → ED 01:56 → 4N 01:56 → SUATTDRO 07:31 → OBSVTOIN 07:31
PROVIDERS: ATTEND Internal Medicine
CPT/HCPCS: 47000; 51702; 71260; 72192; 74160; 76700; 76705; 76856; 76942; 77012; 80048; 80053; 80074; 80101; 80301; 80307; 80324; 80345; 80346; 80353; 80358; 80361; 80365; 81001; 81596; 82105; 83992; 84443; 85025; 85027; 85610; 85730; 87088; 87522; 88305; 88313; 93005; 93010; 97110; 97116; 97162; 97530; 99285; A9270; G0431; G0434; G0479; G0480; J1885; J2405; J7030; Q9967